=== PATIENT | male | born 1965 | race Caucasian/White ===

== ENCOUNTER 2019-02-16 13:16 | Emergency (ER) | payer SELFPAY ==
[~2019-02-16] VITALS: Ht 154.9 cm; Wt 59.0 kg
[2019-02-16 13:16] VITALS: BP 145/68
--- NOTE | 2019-02-16 13:27 | NUR ---
PT AMB TO BED 10
--- NOTE | 2019-02-16 13:30 | NUR ---
53 YO M C/O PAINFUL BUMP TO RIGHT SIDE OF NECK. NECK PAIN 9/10 RADIATING TO HEAD. PMH: ARTHRITIS
--- NOTE | 2019-02-16 14:06 | NUR ---
Patient being evaluated by NAVARRO at bedside.
[2019-02-16 14:14] VITALS: BP 145/68
== END 2019-02-16 14:14 | disposition home or self-care (01) ==
LOC: MED 13:16
DX: L73.9 Follicular disorder, unspecified (principal); M19.90 Unspecified osteoarthritis, unspecified site; F17.210 Nicotine dependence, cigarettes, uncomplicated
CPT/HCPCS: 99283